=== PATIENT | female | born 1970 | race Hispanic/Latino ===

== ENCOUNTER 2023-04-17 10:15 | Emergency (ER) | payer BC, OTHER ==
[~2023-04-17] VITALS: Ht 152.4 cm; Wt 65.8 kg
[2023-04-17 11:04] LABS: RAPID GROUP A STREP negative (NEGATIVE)
[2023-04-17 11:14] LABS: SARS-CoV-2, RNA, NAAT POSITIVE SARS CoV-2 (NEGATIVE)
[2023-04-17 11:22] LABS: INFLUENZA TYPE A Negative For Type A (NEGATIVE); INFLUENZA TYPE B Negative For Type B (NEGATIVE)
[2023-04-17] MEDS ORDERED: FLUT16H NASAL (11:33)
[2023-04-17] MEDS ORDERED: MOLN200C PO (11:33)
[2023-04-17] MEDS ORDERED: BENZ200C53 PO (11:33)
[2023-04-17 11:45] VITALS: BP 140/77; PULSE 92; RESP 20; O2SAT 96
== END 2023-04-17 11:54 | disposition home or self-care (01) ==
LOC: EDH 10:15
DX: U07.1 COVID-19 (principal); B34.9 Viral infection, unspecified; E11.9 Type 2 diabetes mellitus without complications
CPT/HCPCS: 99283; 87635; 87880; 87804 ×2; C9803